=== PATIENT | female | born 1975 | race Caucasian/White ===

== ENCOUNTER 2020-07-17 07:15 | Outpatient (REF) | payer BC, SELFPAY | END 2020-07-17 07:16 | disposition home or self-care (01) | LOC: HO.LAB 07:15 | PROVIDERS: PCP Internal Medicine; Visit Provider Internal Medicine | DX: Z20.828 Contact with and (suspected) exposure to other viral communicable diseases (principal) | CPT/HCPCS: C9803; U0003 ==

== ENCOUNTER 2023-07-14 08:56 | Outpatient (AMB) | payer OTHER, SELFPAY ==
[2023-07-14 09:00] VITALS: BP 137/76; PULSE 87; BMI 35.1
--- NOTE | 2023-07-14 09:00 | A.OFFVIS_ITS ---
Intake Vital Signs 07/14/23 09:00 Height 5 ft 3 in Weight 198 lb BMI 35.1 BP 137/76 Blood Pressure Location Rt brachial Position Sitting Pulse 87 Intake Visit Reasons: Dermoid cyst of the head Intake Note: Patient referred for lumps on scalp. Developed yrs ago. Had 1 cyst removed about 10 yrs ago. Has 4 newer growths on scalp that are enlarging. Denies pain, oozing or tenderness. [employer] Required: No Accompanied by: Self / Same As Patient Allergies sulfa Allergy (Unknown, Uncoded 07/14/23 09:06) rash HPI HPI Comments History of Present Illness Details Patient presents for evaluation of for scalp Pilar cysts and a vertex of scalp skin lesion. 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 Chart was reviewed and patient evaluated [facility] Medical History (Updated 07/14/23 @ 09:07 by SURINDER Garnett) DM type 2 (diabetes mellitus, type 2) Surgical History (Updated 07/14/23 @ 09:25 by Flaco Galindo MD) Hx of tonsillectomy Previous section Family History (Updated 07/14/23 @ 09:09 by SURINDER Garnett) Father Pancreatic cancer Social History (Updated 07/14/23 @ 09:09 by SURINDER Garnett) Alcohol intake: never Patient Tobacco Use Status: Never used Tobacco Physical Exam Vital Signs: Last Vital Signs Pulse 87 07/14/23 09:00 BP 137/76 07/14/23 09:00 BMI result Body Mass Index 35.1 Neck Other: Patient has 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 She also has a skin lesion at the vertex of her scalp which she said she has had since her youth. This measures approximately 3 x 2 cm. Chest Other: Chest breath sounds bilaterally, HS 1 in 2 GI Other: Abdomen soft, moderately corpulent, benign Assessment & Plan Assessment & Plan (1) Pilar cysts: Code(s): L72.11 - Pilar cyst (2) Skin lesion: Code(s): L98.9 - Disorder of the skin and subcutaneous tissue, unspecified Plan Risks, benefits, alternatives of excision of these scalp Pilar cysts and skin lesion of the scalp reviewed the patient included but not limited to bleeding, infection, recurrence, numbness, pain, scarring the patient was to proceed. All questions were answered. Arrangements were made for this on a day which is convenient for her. Coding Level of Care Code New Pt Level 5 (49278) Diagnoses Pilar cysts L72.11 Skin lesion L98.9
== END 2023-07-14 09:17 | disposition home or self-care (01) ==
PROVIDERS: PCP Internal Medicine; Referring Provider Physician Assistant; Visit Provider Surgery
DX: L72.11 Pilar cyst (principal); L98.9 Disorder of the skin and subcutaneous tissue, unspecified
CPT/HCPCS: 99204

== ENCOUNTER → 2023-07-14 08:56 | Outpatient (BNVA) | payer OTHER, SELFPAY | PROVIDERS: PCP Internal Medicine; Referring Provider Physician Assistant; Visit Provider Surgery ==

== ENCOUNTER 2023-10-29 05:51 | Day surgery (SDC) | payer OTHER, SELFPAY ==
[2023-10-27 07:12] VITALS: BMI 35.1
--- NOTE | 2023-10-28 08:27 | HO.ANESPROP2 ---
Documented by User: Sarah Genao NP 11/09/23 10:14 HPI - Anesthesia Eval Consult details Narrative: 48yo F for Wide Local Excision Scalp Lesions and Cyst PMFSH Active Problems Active Problems: All Active Problems (Updated 07/14/23 @ 09:25 by Flaco Galindo MD) Skin lesion (Acute) Pilar cysts (Acute) Past Medical History Medical History DM type 2 (diabetes mellitus, type 2) Family History Family History Father Pancreatic cancer Surgical History Surgical History Hx of tonsillectomy Previous section Social History Social History Alcohol intake: never Comment: counts correct Patient Tobacco Use Status: Never used Tobacco Meds Allergies Allergy/AdvReac Type Severity Reaction Status Date / Time sulfa Allergy Unknown rash Uncoded 11/09/23 15:09 Home Medications Medication Instructions Recorded Confirmed Last Taken Type fluconazole 50 mg tablet See Rx Instructions .Route .COMPLEX 07/14/23 10/29/23 Unknown History metformin 500 mg tablet 1,000 mg PO DAILY 07/14/23 10/29/23 Unknown History insulin glargine 100 unit/mL (3 8 unit subcut BEDTIME 10/29/23 10/29/23 Unknown History mL) subcutaneous pen (Lantus Solostar U-100 Insulin) Exam Height,Weight and Vital Signs: Height 5 ft 3 in Weight 89.811 kg Assessment and Plan Assessment Anesthesia Assessment: Chart Reviewed Documented by User: Rubén Raymundo MD 12/02/23 11:16 PMFSH Past Medical History Medical History DM type 2 (diabetes mellitus, type 2) Patient : No Family History Family History Father Pancreatic cancer Family history of problems with anesthesia: No Surgical History Surgical History Hx of tonsillectomy Previous section History of Problems with Anesthesia: No Social History Social History Alcohol intake: never Comment: counts correct Patient Tobacco Use Status: Never used Tobacco Meds Allergies Allergy/AdvReac Type Severity Reaction Status Date / Time sulfa Allergy Unknown rash Uncoded 11/09/23 15:09 Home Medications Medication Instructions Recorded Confirmed Last Taken Type fluconazole 50 mg tablet See Rx Instructions .Route .COMPLEX 07/14/23 10/29/23 Unknown History metformin 500 mg tablet 1,000 mg PO DAILY 07/14/23 10/29/23 Unknown History insulin glargine 100 unit/mL (3 8 unit subcut BEDTIME 10/29/23 10/29/23 Unknown History mL) subcutaneous pen (Lantus Solostar U-100 Insulin) Exam Airway Mallampati Class: II TM Dist: <=3cm Neck ROM: Full Heart: ok Lungs: ok Assessment and Plan Assessment Anesthesia Assessment: Anesthesia Plan Discussed Final Anesthetic Review Family History of Problems with Anesthesia: No History of Problems with Anesthesia: No NPO: Yes ASA Class: II Final Preanesthetic Review: No Changes in Pt Med Stat, Meds/Allgs Chart Reviewed, Consent Obtained/Reviewed and Anes Risks/Benef Reviewed Patient Risk: Low Procedure Risk: Intermediate Anesthetic Plan Anesthetic Plan: GA and Agree w/ Assess. and Plan Disposition: Standard PACU
--- NOTE | 2023-10-28 12:54 | MHC.SHP ---
Pre-Procedural Eval Section A - 24 Hr Update-Section A only Date of Service: 10/28/23 The patient is an INPATIENT: No Changes since office visit: No Cold of Flu in the past 2 weeks, No New Medical Problems, No Changes in Medication and No Patient answered all questions The patient has been examined within 24 hours of the surgical procedure. The History & Physical has been completed within 30 days and I have reviewed it.: Yes Section B - Complete if H&P > 30 days Chief Complaint: Disorder of the skin and subcutaneous tissue, unsp Allergies: Allergies Allergy/AdvReac Type Severity Reaction Status Date / Time sulfa Allergy Unknown rash Uncoded 07/14/23 09:06 Plan I have reviewed the history and physical and performed a pertinent physical examination on my patient. No changes have occurred unless specified. Time Spent With Patient Time: Total time managing care of this patient today ____ minutes.
[2023-10-29 06:16] LABS: Glucose, Whole Blood 327 mg/dL (60-115)
[2023-10-29 06:20] VITALS: BP 126/87; PULSE 101; RESP 18; TEMP 36.8; O2SAT 98; BMI 32.4
[2023-10-29 06:20] LABS: UPreg QC Valid YES; Urine Pregnancy NEGATIVE (NEGATIVE)
[2023-10-29 06:23] VITALS: BMI 32.4
[2023-10-29] MEDS: Lactated Ringers 1,000 ML 100 ML IVCONT (07:02)
[2023-10-29] MEDS: Insulin Lispro 100 UNIT/ML 3 ML VIAL 10 UNIT SUBCUT (07:30)
--- NOTE | 2023-10-29 08:31 | P.OP_ITS ---
Operative Note Operative Note Date of Service: 10/29/23 Narrative: Preoperative diagnosis: [] Scalp when x4, scalp lesion x1 Postop diagnosis: [] Same Procedure [] excision scalp 1 x 4, skin lesion scalp x1 Surgeon: [] [employer] Auditor: [] Vivek Type of Anesthesia: [] LMA Indication for surgery: [] Scalp wounds measured 1.5 x1.5, 0.5 x 0.5, 0.5 x 0.5, 1.5 x 1 cm. Skin lesion measured 1.5 x 1.5cm. Findings: [] Patient brought to the operating room, placed on operative table supine position, after adequate level of LMA anesthesia was induced, patient was placed in the prone position, and the posterior scalp and vertex of scalp were prepped and draped in usual sterile fashion. Premarked areas were all infiltrated with 0.5% Marcaine/1% lidocaine. Each scalp 1 was approached with a longitudinal incision was uneventfully enucleation of each when. Size lesions were as noted above. Each wound was irrigated, secured hemostasis, and closed using interrupted 2-0 Prolene suture. Skin lesion was excised using a transverse by elliptical incision and specimen sent to pathology. This wound was also secured for hemostasis after irrigation, and closed using interrupted 2-0 Prolene suture. Wounds were irrigated and secured hemostasis followed by bacitracin to each wound. Sponge, needle, and instrument counts reported correct. Patient tolerated the procedure well and emerged from anesthesia stable condition. EBL minimal
[2023-10-29 08:33] VITALS: BP 133/94; PULSE 90; RESP 16; TEMP 36.1; O2SAT 97
[2023-10-29 08:38] VITALS: BP 144/79; PULSE 82; RESP 18; O2SAT 97
[2023-10-29 08:43] VITALS: BP 139/74; PULSE 75; RESP 18; O2SAT 97
[2023-10-29 08:50] VITALS: BP 130/76; PULSE 77; RESP 18; O2SAT 96
[2023-10-29 09:05] VITALS: BP 142/66; PULSE 88; RESP 16; TEMP 36.1; O2SAT 99
[2023-10-29] MEDS: Acetaminophen 325 MG TABLET 650 MG PO (09:05)
== END 2023-10-29 09:46 | disposition home or self-care (01) ==
PROVIDERS: Nurse Practitioner; PCP Internal Medicine; Visit Provider Surgery
PROC: (CPT 11422; principal; 2023-10-29 07:30)
DX: L72.11 Pilar cyst (principal); L82.1 Other seborrheic keratosis; E11.9 Type 2 diabetes mellitus without complications; Z79.84 Long term (current) use of oral hypoglycemic drugs; Z80.0 Family history of malignant neoplasm of digestive organs; Z88.2 Allergy status to sulfonamides
CPT/HCPCS: 11422 ×3; 11420 ×2; 81025; 82947; 88305; J0690; J1885; J2250; J2405; J2704; J2795; J3010

== ENCOUNTER → 2023-10-29 05:51 | Outpatient (BNV) | payer OTHER, SELFPAY | PROVIDERS: PCP Internal Medicine; Visit Provider Surgery | DX: L72.11 Pilar cyst (principal); L98.9 Disorder of the skin and subcutaneous tissue, unspecified | CPT/HCPCS: 11420; 11422 ==

== ENCOUNTER 2023-11-09 14:56 | Outpatient (AMB) | payer OTHER, SELFPAY ==
[2023-11-09 15:06] VITALS: BP 108/75; PULSE 68
--- NOTE | 2023-11-09 15:06 | A.OFFVIS_ITS ---
Intake Vital Signs 11/09/23 15:06 Weight 177 lb BP 108/75 Blood Pressure Location Rt brachial Position Sitting Pulse 68 Intake Visit Reasons: S/P WLE scalp lesions & cysts x5 Intake Note: Patient here s/p exc X4. Reports exc sites on scalp are healing well. Denies bleeding, itch. Health And Wellness Director Required: No Accompanied by: Self / Same As Patient Allergies sulfa Allergy (Unknown, Uncoded 11/09/23 15:09) rash HPI HPI Comments History of Present Illness Details Patient presents for follow-up. She has no wound issues or complaints. All pathology are benign. [facility] Medical History DM type 2 (diabetes mellitus, type 2) Surgical History Hx of tonsillectomy Previous section Family History Father Pancreatic cancer Social History Alcohol intake: never Comment: counts correct Patient Tobacco Use Status: Never used Tobacco Physical Exam Vital Signs: Last Vital Signs Pulse 68 11/09/23 15:06 BP 108/75 11/09/23 15:06 HEENT Other: All wounds healing well and clean dry and intact. Sutures were uneventfully removed. Assessment & Plan Assessment & Plan (1) Pilar cysts: Code(s): L72.11 - Pilar cyst (2) Skin lesion: Code(s): L98.9 - Disorder of the skin and subcutaneous tissue, unspecified (3) Status post excision of skin lesion, follow-up exam: Code(s): Z09 - Encounter for follow-up examination after completed treatment for conditions other than malignant neoplasm Plan Patient has been given local instructions, and will follow-up p.r.n.. Coding Level of Care Code Global (70502) Diagnoses Pilar cysts L72.11 Skin lesion L98.9 Status post excision of skin lesion, follow-up exam Z09
== END 2023-11-09 15:18 | disposition home or self-care (01) ==
PROVIDERS: PCP Internal Medicine; Visit Provider Surgery
DX: L72.11 Pilar cyst (principal); L98.9 Disorder of the skin and subcutaneous tissue, unspecified; Z09 Encounter for follow-up examination after completed treatment for conditions other than malignant neoplasm
CPT/HCPCS: 99024

== ENCOUNTER → 2023-11-09 14:56 | Outpatient (BNVA) | payer OTHER, SELFPAY | PROVIDERS: PCP Internal Medicine; Visit Provider Surgery ==